=== PATIENT | female | born 1975 | race Caucasian/White ===

== ENCOUNTER → 2020-10-20 13:15 | Outpatient (CLI) | payer OTHER, SELFPAY ==
--- NOTE | ~2020-10-20 | MM_ITS ---
EXAMINATION: MM screening maren BI w timi HISTORY: Screening mammogram TECHNIQUE: Craniocaudal and mediolateral oblique 3-D tomosynthesis images were obtained and synthetic 2-D images were generated. CAD analysis was submitted and interpreted. COMPARISON: 07/07/2015 bilateral digital screening mammogram examinations BREAST PARENCHYMAL COMPOSITION: The breasts are almost entirely fatty. FINDINGS: There is no evidence of suspicious mass, calcification, or architectural distortion to sugg est malignancy in either breast. There has been no suspicious interval change. IMPRESSION: 1. No mammographic evidence of malignancy. 2. Recommend routine screening mammography in one year. BI-RADS Category 1: Negative Reviewed, dictated and finalized at location A.
== END ==
PROVIDERS: PCP Internal Medicine; Visit Provider Obstetrics & Gynecology
DX: Z12.31 Encounter for screening mammogram for malignant neoplasm of breast (principal)
CPT/HCPCS: 77063; 77067

== ENCOUNTER 2021-02-22 10:36 | Outpatient (CLI) | payer OTHER, SELFPAY ==
--- NOTE | ~2021-02-22 | XR_ITS ---
EXAMINATION: XR TMJ BI DATE: 02/22/2021 11:36 INDICATION: Recurrent temporomandibular joint dislocation and pain. TECHNIQUE: Open and closed mouth views of the bilateral temporomandibular joints for a total of 4 vie ws were obtained. COMPARISON: None. FINDINGS: There is a small osteophyte of left mandibular condyle. Right mandibular condyle demonstrat es normal morphology. There is decreased anterior translation of the mandibular condyles in the open- mouth position. IMPRESSION: 1. Decreased anterior translation of the mandibular condyles in the open-mouth position suggesting in ternal derangement. Consider MRI of the temporomandibular joints without contrast to evaluate the dis cs. 2. Mild left temporomandibular joint osteoarthritis. Reviewed, dictated and finalized at location A. IMPRESSION: 1. Decreased anterior translation of the mandibular condyles in the open-mouth position suggesting internal derangement. Consider MRI of the temporomandibular joints without contrast to evaluate the discs. 2. Mild left temporomandibular joint osteoarthritis.
--- NOTE | ~2021-02-22 | XR_ITS ---
EXAMINATION: XR mandible min 4V DATE: 02/22/2021 11:35 INDICATION: Recurrent temporomandibular joint dislocation with pain. TECHNIQUE: 4 views of the mandible were obtained. COMPARISON: None. FINDINGS: Bone alignment is normal. No fracture. IMPRESSION: 1. No fracture. Reviewed, dictated and finalized at location A. IMPRESSION: 1. No fracture.
== END 2021-02-22 10:37 | disposition home or self-care (01) ==
LOC: CHSIMG 10:39
PROVIDERS: PCP Internal Medicine; Visit Provider Internal Medicine
DX: S03.00XA Dislocation of jaw, unspecified side, initial encounter (principal)
CPT/HCPCS: 70110; 70330

== ENCOUNTER 2021-02-28 07:25 | Outpatient (CLI) | payer OTHER, SELFPAY ==
--- NOTE | ~2021-02-28 | MR_ITS ---
EXAMINATION: MR TMJS DATE: 02/28/2021 09:26 INDICATION: Temporomandibular joint dislocation and pain. TECHNIQUE: Magnetic resonance imaging (MRI) of the temporomandibular joints was performed without int ravenous contrast. Sequences included closed-mouth sagittal T2-weighted FSE and PD-weighted FSE and c oronal T1-weighted SE and open-mouth sagittal T2-weighted FSE and PD-weighted FSE and coronal T1-weig hted SE. COMPARISON: Mandible and temporomandibular joint radiographs 02/22/2021 FINDINGS: The right temporomandibular joint demonstrates small osteophytes of the mandibular condyle. The disc is in normal position with mouth closed. There is decreased anterior translation of the mandibular co ndyle with the mouth open. The disc is in normal position with the mouth open. The left temporomandibular joint demonstrates small osteophytes of the mandibular condyle. There is a nterior displacement of the disk with mouth closed. There is decreased anterior translation of the ma ndibular condyle with the mouth open. There is no recapture of the disk with mouth open. IMPRESSION: 1. Mild right temporomandibular joint osteoarthritis. Disc in normal position with mouth closed and o pen. 2. Mild left temporomandibular joint osteoarthritis. There is abnormal anterior disk displacement wit h mouth closed that does not reduce with mouth open. Reviewed, dictated and finalized at location A. IMPRESSION: 1. Mild right temporomandibular joint osteoarthritis. Disc in normal position w ith mouth closed and open. 2. Mild left temporomandibular joint osteoarthritis. There is abnormal anterior disk displacement with mouth closed that does not reduce with mouth open.
== END 2021-02-28 07:26 | disposition home or self-care (01) ==
LOC: CHSIMG 07:26
PROVIDERS: PCP Internal Medicine; Visit Provider Internal Medicine
DX: M26.629 Arthralgia of temporomandibular joint, unspecified side (principal)
CPT/HCPCS: 70336

== ENCOUNTER → 2022-05-17 11:28 | Outpatient (CLI) | payer OTHER, SELFPAY ==
--- NOTE | ~2022-05-17 | MM_ITS ---
EXAMINATION: MM screening maren BI w timi HISTORY: Screening mammogram TECHNIQUE: Craniocaudal and mediolateral oblique 3-D tomosynthesis images were obtained and synthetic 2-D images were generated. CAD analysis was submitted and interpreted. COMPARISON: 10/20/2020, 07/07/2015 bilateral screening mammogram examinations BREAST PARENCHYMAL COMPOSITION: The breasts are almost entirely fatty. FINDINGS: There is no evidence of suspicious mass, calcification, or architectural distortion to sugg est malignancy in either breast. There has been no suspicious interval change. IMPRESSION: 1. No mammographic evidence of malignancy. 2. Recommend routine screening mammography in one year. BI-RADS Category 1: Negative Reviewed, dictated and finalized at location B. 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
== END ==
PROVIDERS: PCP Internal Medicine; Visit Provider Obstetrics & Gynecology
DX: Z12.31 Encounter for screening mammogram for malignant neoplasm of breast (principal)
CPT/HCPCS: 77063; 77067